=== PATIENT | male | born 1990 | race Caucasian/White ===

== ENCOUNTER 2020-12-08 21:46 | Emergency (ER) | payer OTHER ==
[2020-12-08 22:26] LABS: BILIRUBIN NEGATIVE (NEGATIVE); BLOOD NEGATIVE Ery/uL (NEGATIVE); CLARITY CLEAR (CLEAR); COLOR YELLOW (YELLOW); GLUCOSE (U) NORMAL (NORMAL); LEUKOCYTES NEGATIVE Leu/uL (NEGATIVE); NITRITE NEGATIVE (NEGATIVE); PROTEIN 2+ mg/dL (NEGATIVE); SPECIFIC GRAVITY >=1.030 (1.001-1.030)
[2020-12-08 22:35] LABS: BACTERIA TRACE; URINARY RBC RARE
[2020-12-08 22:36] LABS: AMORPHOUS URATES CRYSTALS LARGE
[2020-12-08 22:39] LABS: BASOPHIL 0.7 % (0-2); EOSINOPHIL 0.6 % (0-5); HCT 46.5 % (42.0-52.0); HGB 16.4 g/dl (13.2-18.0); LYMPHOCYTE 25.4 % (15-48); MCH 29.5 pg (25.0-31.0); MCHC 35.3 g/dL (32.0-36.0); MCV 83.8 fL (78.0-100.0); MONOCYTE 10.6 % (0-12); MPV 10.3 fL (6.0-9.5); NEUTROPHIL 62.6 % (41-80); NRBC 0; PLT 229 K/uL (150-400); RBC 5.55 M/uL (4.70-6.00); WBC 7.2 K/uL (4.0-10.5)
[2020-12-08 22:57] LABS: ALBUMIN 4.6 g/dL (3.4-5.0); BILIRUBIN - TOTAL 0.6 mg/dL (0.2-1.0); BUN/CREAT RATIO (CALC) 11.1 RATIO; CREATININE 0.9 mg/dL (0.67-1.17); GLOBULIN (CALCULATION) 3.6 g/dL; POTASSIUM 3.5 mmol/L (3.5-5.1); TOTAL PROTEIN 8.2 g/dL (6.4-8.2)
[2020-12-08] MEDS ORDERED: DICYCLOMINE HCL20 MG PO (23:19)
== END 2020-12-08 23:27 | disposition home or self-care (01) ==
LOC: FER 21:46
PROVIDERS: Emergency Medicine
DX: K58.9 Irritable bowel syndrome, unspecified (principal); F17.290 Nicotine dependence, other tobacco product, uncomplicated
CPT/HCPCS: 36415; 80053; 81001; 85025; 99284; J0500